=== PATIENT | female | born 1975 | race Caucasian/White ===

== ENCOUNTER 2016-11-22 09:47 | Outpatient (CLI) | payer OTHER, MEDICAID | END 2016-11-22 10:26 | disposition home or self-care (01) | LOC: LC 09:47 | PROVIDERS: ATTEND Specialist | DX: O62.9 Abnormality of forces of labor, unspecified (principal) | CPT/HCPCS: 59025 ==

== ENCOUNTER 2016-12-02 15:38 | Outpatient (CLI) | payer OTHER, MEDICAID | END 2016-12-02 16:18 | disposition home or self-care (01) | LOC: LC 15:38 | PROVIDERS: ATTEND Obstetrics & Gynecology | PROC: 4A1HXCZ Monitoring of Products of Conception, Cardiac Rate, External Approach (ICD-10-PCS; principal; 2016-12-02) | DX: O24.913 Unspecified diabetes mellitus in pregnancy, third trimester (principal); O09.523 Supervision of elderly multigravida, third trimester; Z3A.37 37 weeks gestation of pregnancy | CPT/HCPCS: 59025 ==

== ENCOUNTER 2016-12-03 03:55 | Outpatient (CLI) | payer OTHER, MEDICAID ==
--- NOTE | 2016-12-03 03:58 | Non Stress Test Report ---
Non Stress Test Datetime Report Generated by CPN: 12/03/2016 03:58 DEMOGRAPHIC EGA NST: 37.0 EGA NST: 35.4 INDICATION Indication for Study: Diabetes Mellitus Indication for Study: Diabetes Mellitus; Ordered by Provider Indication for Study (NST) Other: AMA MONITORING Monitor Explained: Monitor Explained; Test Explained; Patient Verbalized Understanding Monitor Explained: Monitor Explained; Test Explained; Patient Verbalized Understanding Time on Monitor: 12/02/2016 15:50 Time on Monitor: 11/22/2016 09:56 Time off Monitor: 12/02/2016 16:16 Time off Monitor: 11/22/2016 10:23 NST Duration: 26 NST Duration: 27 NST INTERVENTIONS NST Interventions: PO Hydration; Reposition Patient NST Interventions: PO Hydration; Reposition Patient Physician Notified NST: Dr De La Torre Physician Notified NST: HKonstantin Duncan, CN BABY A: [id number] BABY A Movement : Present Movement : Present Contraction Frequency : none Contraction Frequency : none FHR Baseline : 145 FHR Baseline : 155 Accelerations : 15X15 Accelerations : 15X15 Decelerations : None Decelerations : None Variability : Moderate 6-25bpm Variability : Moderate 6-25bpm NST Review: Meets Criteria for Reactive NST NST Review: Meets Criteria for Reactive NST NST Review and Verified By : Mary Beth Nagel RN NST Review and Verified By : Marj Chandler RN NST Results: Reactive NST Results: Reactive NST COMMENTS NST Comments: care notes reviewed and signed for kick counts NST REPORT Report Trigger: Send Report Report Trigger: Send Report
[2016-12-03 04:30] LABS: APPEARANCE,URINE CLOUDY; BILIRUBIN,URINE NEGATIVE (NEGATIVE); GLUCOSE, URINE NEGATIVE (NEGATIVE); KETONES,URINE TRACE mg/dL (NEGATIVE); LEUKOCYTE ESTERASE,URINE NEGATIVE (NEGATIVE); NITRITE,URINE NEGATIVE (NEGATIVE); PROTEIN,URINE NEGATIVE (NEGATIVE); URINE SPECIFIC GRAVITY 1.013; UROBILINOGEN,URINE NEGATIVE mg/dL (<2.0)
[2016-12-03 04:44] LABS: URINE BARBITURATES SCREEN NEGATIVE; URINE METHADONE SCREEN NEGATIVE; URINE OPIATES LOW NEGATIVE; URINE PHENCYCLIDINE SCREEN NEGATIVE
[2016-12-03] MEDS ORDERED: RINGERS SOLUTION,LACTATED 1,000 ML IV PRN (05:32)
[2016-12-03] MEDS ORDERED: HYDROXYZINE PAMOATE 50 MG CAPSULE ONE (09:21)
== END 2016-12-03 09:36 | disposition home or self-care (01) ==
LOC: LC 03:55
PROVIDERS: ATTEND Obstetrics & Gynecology
PROC: 4A1HXCZ Monitoring of Products of Conception, Cardiac Rate, External Approach (ICD-10-PCS; principal; 2016-12-03)
DX: O47.1 False labor at or after 37 completed weeks of gestation (principal); O09.523 Supervision of elderly multigravida, third trimester; O34.219 Maternal care for unspecified type scar from previous cesarean delivery; Z3A.37 37 weeks gestation of pregnancy
CPT/HCPCS: 76819; 80307; 81005

== ENCOUNTER → 2016-12-06 | Outpatient (CLI) | payer OTHER, MEDICAID | LOC: LC 11:40 | PROVIDERS: ATTEND Obstetrics & Gynecology | PROC: 4A0HXCZ Measurement of Products of Conception, Cardiac Rate, External Approach (ICD-10-PCS; principal; 2016-12-06) | DX: Z34.82 Encounter for supervision of other normal pregnancy, second trimester (principal); Z3A.37 37 weeks gestation of pregnancy | CPT/HCPCS: 76819; 82962 ==

== ENCOUNTER → 2016-12-15 | Outpatient (CLI) | payer OTHER, MEDICAID ==
[2016-12-16 10:55] LABS: AMNISURE (ROM) NEGATIVE (NEGATIVE)
[2016-12-16 14:21] LABS: APPEARANCE,URINE CLOUDY; BILIRUBIN,URINE NEGATIVE (NEGATIVE); GLUCOSE, URINE NEGATIVE (NEGATIVE); KETONES,URINE NEGATIVE (NEGATIVE); LEUKOCYTE ESTERASE,URINE NEGATIVE (NEGATIVE); NITRITE,URINE NEGATIVE (NEGATIVE); PROTEIN,URINE NEGATIVE (NEGATIVE); URINE SPECIFIC GRAVITY 1.005; UROBILINOGEN,URINE NEGATIVE mg/dL (<2.0)
== END ==
LOC: LC 15:41
PROVIDERS: ATTEND Specialist
PROC: 4A1HXCZ Monitoring of Products of Conception, Cardiac Rate, External Approach (ICD-10-PCS; principal; 2016-12-15)
DX: O09.523 Supervision of elderly multigravida, third trimester (principal); Z3A.39 39 weeks gestation of pregnancy
CPT/HCPCS: 80307; 81005; 84112

== ENCOUNTER 2016-12-16 08:36 | Outpatient (CLI) | payer OTHER, MEDICAID ==
[2016-12-16 09:28] LABS: APPEARANCE,URINE CLOUDY; BILIRUBIN,URINE NEGATIVE (NEGATIVE); GLUCOSE, URINE NEGATIVE (NEGATIVE); KETONES,URINE TRACE mg/dL (NEGATIVE); LEUKOCYTE ESTERASE,URINE TRACE (NEGATIVE); NITRITE,URINE NEGATIVE (NEGATIVE); PROTEIN,URINE NEGATIVE (NEGATIVE); UROBILINOGEN,URINE NEGATIVE mg/dL (<2.0)
[2016-12-16 09:52] LABS: URINE BARBITURATES SCREEN NEGATIVE; URINE METHADONE SCREEN NEGATIVE; URINE OPIATES LOW NEGATIVE; URINE PHENCYCLIDINE SCREEN NEGATIVE
== END 2016-12-16 09:57 | disposition home or self-care (01) ==
LOC: LC 08:36
PROVIDERS: ATTEND Student in an Organized Health Care Education/Training Program
PROC: 4A1HXCZ Monitoring of Products of Conception, Cardiac Rate, External Approach (ICD-10-PCS; principal; 2016-12-16)
DX: O47.1 False labor at or after 37 completed weeks of gestation (principal); O09.523 Supervision of elderly multigravida, third trimester; Z3A.39 39 weeks gestation of pregnancy
CPT/HCPCS: 59025; 80307; 81005

== ENCOUNTER 2016-12-16 12:08 | Outpatient (CLI) | payer OTHER, MEDICAID ==
--- NOTE | 2016-12-16 13:37 | Non Stress Test Report ---
Non Stress Test Datetime Report Generated by CPN: 12/16/2016 13:36 DEMOGRAPHIC EGA NST: 39.0 EGA NST: 39.0 INDICATION Indication for Study: Ordered by Provider Indication for Study: Ordered by Provider MONITORING Monitor Explained: Monitor Explained; Test Explained; Patient Verbalized Understanding Monitor Explained: Monitor Explained; Test Explained; Patient Verbalized Understanding Time on Monitor: 12/16/2016 12:10 Time on Monitor: 12/16/2016 08:49 Time off Monitor: 12/16/2016 13:24 Time off Monitor: 12/16/2016 09:43 NST Duration: 74 NST Duration: 54 NST INTERVENTIONS NST Interventions: IV Fluids NST Interventions: None Physician Notified NST: Dr. Bullard Physician Notified NST: Dr. Bullard BABY A Movement : Present Movement : Present Contraction Frequency : irregualr Contraction Frequency : irregular FHR Baseline : 140 FHR Baseline : 145 Accelerations : 15X15 Accelerations : 15X15 Decelerations : None Decelerations : None Variability : Moderate 6-25bpm Variability : Moderate 6-25bpm NST Review: Meets Criteria for Reactive NST NST Review: Meets Criteria for Reactive NST NST Review and Verified By : Norbert Ge RN NST Review and Verified By : Norbert Ge RNC NST Results: Reactive NST Results: Reactive NST REPORT Report Trigger: Send Report
== END 2016-12-16 13:35 | disposition home or self-care (01) ==
LOC: LC 12:08
PROVIDERS: ATTEND Student in an Organized Health Care Education/Training Program
PROC: 4A1HXCZ Monitoring of Products of Conception, Cardiac Rate, External Approach (ICD-10-PCS; principal; 2016-12-16)
DX: O47.1 False labor at or after 37 completed weeks of gestation (principal); O09.523 Supervision of elderly multigravida, third trimester; Z3A.39 39 weeks gestation of pregnancy
CPT/HCPCS: 59025

== ENCOUNTER 2016-12-17 02:14 | Outpatient (CLI) | payer OTHER, MEDICAID ==
[2016-12-17 03:06] LABS: APPEARANCE,URINE SLIGHTLY-CLOUDY; BILIRUBIN,URINE NEGATIVE (NEGATIVE); GLUCOSE, URINE NEGATIVE (NEGATIVE); KETONES,URINE TRACE mg/dL (NEGATIVE); LEUKOCYTE ESTERASE,URINE NEGATIVE (NEGATIVE); NITRITE,URINE NEGATIVE (NEGATIVE); PROTEIN,URINE NEGATIVE (NEGATIVE); URINE SPECIFIC GRAVITY 1.013; UROBILINOGEN,URINE NEGATIVE mg/dL (<2.0)
[2016-12-17 03:11] LABS: AMNISURE (ROM) NEGATIVE (NEGATIVE)
[2016-12-17 03:21] LABS: URINE BARBITURATES SCREEN NEGATIVE; URINE OPIATES LOW NEGATIVE; URINE PHENCYCLIDINE SCREEN NEGATIVE
[2016-12-17 03:28] LABS: URINE METHADONE SCREEN NEGATIVE
--- NOTE | 2016-12-17 04:16 | Non Stress Test Report ---
Non Stress Test Datetime Report Generated by CPN: 12/17/2016 04:15 DEMOGRAPHIC EGA NST: 39.1 INDICATION Indication for Study: Ordered by Provider MONITORING Monitor Explained: Monitor Explained; Test Explained; Patient Verbalized Understanding Time on Monitor: 12/17/2016 02:46 Time off Monitor: 12/17/2016 04:07 NST Duration: 81 NST INTERVENTIONS NST Interventions: Reposition Patient Physician Notified NST: DrKonstantin Bullard BABY A Movement : Present (Annotations: Data stored by [facility] on behalf of user) Contraction Frequency : 6-9 FHR Baseline : 145 Accelerations : 15X15 Decelerations : None Variability : Moderate 6-25bpm NST Review: Meets Criteria for Reactive NST NST Review and Verified By : Nai Montoya RN NST Results: Reactive NST REPORT Report Trigger: Send Report
== END 2016-12-17 04:22 | disposition other institution (70) ==
LOC: LC 02:14
PROVIDERS: ATTEND Student in an Organized Health Care Education/Training Program
PROC: 4A1HXCZ Monitoring of Products of Conception, Cardiac Rate, External Approach (ICD-10-PCS; principal; 2016-12-17)
DX: O47.1 False labor at or after 37 completed weeks of gestation (principal); O09.523 Supervision of elderly multigravida, third trimester; Z3A.39 39 weeks gestation of pregnancy
CPT/HCPCS: 59025; 80307; 81005; 82962; 84112

== ENCOUNTER 2016-12-17 04:23 | Inpatient (IN) | payer OTHER, MEDICAID ==
[2016-12-16 12:03] LABS: ABSOLUTE BASOPHILS # (AUTO) 0.1 10^3/uL (0.0-0.2); ABSOLUTE LYMPHOCYTES (AUTO) 1.7 10^3/uL (0.5-4.7); ABSOLUTE NEUT (AUTO) 11.4 10^3/uL (1.7-8.2); BASOPHILS % (AUTO) 0.4 % (0-2); EOSINOPHILS % (AUTO) 0.2 % (0-6); HEMOGLOBIN 9.9 g/dL (12.0-15.5); HGB HCT DIFFERENCE -2.3; MEAN CORPUSCULAR HEMOGLOBIN 22.4 pg (27.0-33.4); MEAN CORPUSCULAR VOLUME 72 fl (80-97); MONOCYTES % (AUTO) 6.8 % (3-13); RED BLOOD COUNT 4.42 10^6/uL (3.72-5.28); RED CELL DISTRIBUTION WIDTH 15.5 % (11.5-14.0); SEGMENTED NEUTROPHILS % (AUTO) 80.6 % (42-78); WHITE BLOOD COUNT 14.1 10^3/uL (4.0-10.5)
[~2016-12-17 04:23] MED LIST: HYDROXYZINE PAMOATE 50 MG CAPSULE ONE
[2016-12-17] MEDS ORDERED: RINGERS SOLUTION,LACTATED 1,000 ML IV PRN (05:00)
[2016-12-17] MEDS: RINGERS SOLUTION,LACTATED 1,000 ML IV PRN ×2 (05:08→06:03)
[2016-12-17] MEDS ORDERED: OXYTOCIN 10 UNIT/ML VIAL ONE (07:41)
[2016-12-17] MEDS ORDERED: KETOROLAC TROMETHAMINE INJ/PF 30 MG/1 ML SDV ONE (07:41)
[2016-12-17] MEDS ORDERED: FENTANYL CITRATE INJ/PF 100 MCG/2 ML AMPUL ONE (07:41)
[2016-12-17] MEDS ORDERED: MIDAZOLAM 2 MG/2 ML INJ ONE (07:41)
[2016-12-17] MEDS ORDERED: EPHEDRINE SULFATE INJ 50 MG/1 ML AMPULE ONE (07:41)
[2016-12-17] MEDS ORDERED: FENTANYL CITRATE INJ/PF 250 MCG/5 ML AMPULE ONE (07:41)
[2016-12-17] MEDS ORDERED: OXYTOCIN/NORMAL SALINE 20 UNIT/1,000 ML RTUINJ ONE (07:42)
[2016-12-17] MEDS ORDERED: ONDANSETRON HCL INJ/PF 4 MG/2 ML SDV ONE (07:42)
[2016-12-17] MEDS ORDERED: ACETAMINOPHEN 100 ML IV ONE (07:42)
[2016-12-17] MEDS: CEFAZOLIN 1 GM/D5W RTU 1 GM/50 ML RTUPB IV PRN ×3 (08:00→12:42)
[2016-12-17] MEDS ORDERED: MORPHINE SULFATE 10 MG/ML INJ IV PRN (08:44)
[2016-12-17] MEDS ORDERED: ONDANSETRON HCL INJ/PF 4 MG/2 ML SDV IV PRN (08:44)
[2016-12-17] MEDS ORDERED: OXYCODONE-ACETAMINOPHEN 5-325 MG TABLET PO PRN ×4 (08:44→09:43)
[2016-12-17] MEDS ORDERED: FENTANYL CITRATE INJ/PF 100 MCG/2 ML AMPUL IV PRN ×3 (08:44)
[2016-12-17] MEDS ORDERED: MEPERIDINE HCL/PF INJ 25 MG/1 ML DISP.SYRIN IV PRN (08:44)
[2016-12-17] MEDS ORDERED: DIPHENHYDRAMINE HCL 50 MG/ML VIAL IV PRN (08:44)
[2016-12-17] MEDS ORDERED: PROMETHAZINE HCL INJ 25 MG/1 ML VIAL IV PRN ×3 (08:44→09:43)
[2016-12-17] MEDS ORDERED: PHENYLEPHRINE HCL INJ/PF 10 MG/1 ML SDV ONE (09:13)
--- NOTE | 2016-12-17 09:41 | Operative Report ---
Operative Report DATE OF SURGERY: 12/17/16 PREOPERATIVE DIAGNOSIS: Repeat , gestational diabetes, macrosomia POSTOPERATIVE DIAGNOSIS: Same OPERATION: Repeat via low transverse uterine incision and lysis of adhesions SURGEON: BRYANT MCQUEEN ANESTHESIA: Spinal TISSUE REMOVED OR ALTERED: Placenta COMPLICATIONS: None ESTIMATED BLOOD LOSS: 250 cc INTRAOPERATIVE FINDINGS: Viable male found Apgars 9 9 weight 10 lbs. 15 oz. PROCEDURE: Patient was taken to the OR and placed in supine position after her spinal anesthesia. She is prepared and draped in sterile fashion. Siddiqui was placed for drainage of the bladder. Low transverse incision was made and carried down the level of the fascia. The fascial incision was made with knife and extended bilaterally with curved See scissors. The fascia was off the rectus muscles using sharp and blunt dissection. The rectus muscles are in the midline. The peritoneum was entered without incident. The uterus was adhesed to the anterior rectus muscles. These adhesions were lysed as much as possible with curved See scissors. Bladder blade was placed in uterine segment was identified. A low transverse incision was made creating a bladder flap. Bladder blade was placed low transverse uterine incision was made with the c safe 200 knife and extended with fingertips. The baby was delivered with some fundal pressure. Mouth and nose were suctioned free. The cord is doubly clamped and cut. Baby is passed off to the blocking machine tender in attendance. The placenta was manually extracted with trailing membranes. The uterus could not be externalized. Uterine contents wiped free. Uterus was closed with a running locking layer of 0 chromic suture using the second layer to imbricate the first completing a double layer closure of the uterus. The serosa was closed with a running 2-0 chromic stitch. Interceed was placed over the incision. The pelvis was irrigated and suctioned free of fluid. The abdominal wall peritoneum was closed with running 2-0 chromic stitch. Fascia was closed with a running 0 Vicryl in 2 segments. Babak's layer was brought together with 0 plain gut stitch and the skin was closed with running subcuticular 4-0 undyed Vicryl stitch. The wound was dressed mother and baby did well.
[2016-12-17] MEDS ORDERED: DIPH/PERTUSS(ACELL)/TETANUS VAC/PF 0.5 ML SYR (>=10YO) IM PRN (09:43)
[2016-12-17] MEDS ORDERED: SIMETHICONE 80 MG TAB.CHEW PO PRN (09:43)
[2016-12-17] MEDS ORDERED: HYDROMORPHONE HCL INJ/PF 2 MG/ML AMPULE IV PRN (09:43)
[2016-12-17] MEDS ORDERED: ACETAMINOPHEN 325 MG TABLET PO PRN (09:43)
[2016-12-17] MEDS ORDERED: OXYTOCIN/NORMAL SALINE 1,000 ML IV PRN (09:43)
[2016-12-17] MEDS ORDERED: ACETAMINOPHEN 100 ML IV PRN (09:43)
[2016-12-17] MEDS ORDERED: MEASLES,MUMPS&RUBELLA VACC/PF 0.5 ML VIAL SUBCUT PRN (09:43)
[2016-12-17] MEDS: FENTANYL CITRATE INJ/PF 100 MCG/2 ML AMPUL ONE ×3 (10:05→10:30)
[2016-12-17] MEDS: IBUPROFEN 800 MG TABLET PO SCH ×3 (12:35→23:40)
[2016-12-17] MEDS: DOCUSATE SODIUM 100 MG CAPSULE PO SCH ×2 (12:35→18:39)
[2016-12-17] MEDS: PRENATAL VITAMIN W-O CA NO5/FE FUMARATE/FA CAPSULE PO SCH (12:35)
[2016-12-17] MEDS ORDERED: DIPHENHYDRAMINE HCL 25 MG CAPSULE PO PRN (12:35)
[2016-12-18] MEDS: IBUPROFEN 800 MG TABLET PO SCH ×3 (06:26→17:53)
[2016-12-18 06:29] LABS: HEMATOCRIT 26.6 % (36.0-47.0); HEMOGLOBIN 8.5 g/dL (12.0-15.5); HGB HCT DIFFERENCE -1.1; MEAN CORPUSCULAR HEMOGLOBIN 22.8 pg (27.0-33.4); MEAN CORPUSCULAR VOLUME 71 fl (80-97); RED BLOOD COUNT 3.73 10^6/uL (3.72-5.28); RED CELL DISTRIBUTION WIDTH 14.9 % (11.5-14.0); WHITE BLOOD COUNT 17.1 10^3/uL (4.0-10.5)
[2016-12-18] MEDS: PRENATAL VITAMIN W-O CA NO5/FE FUMARATE/FA CAPSULE PO SCH (09:05)
[2016-12-18] MEDS: DOCUSATE SODIUM 100 MG CAPSULE PO SCH ×2 (09:05→17:53)
[2016-12-19] MEDS: IBUPROFEN 800 MG TABLET PO SCH ×3 (00:23→11:17)
[2016-12-19 09:02] VITALS: BP 119/68
[2016-12-19] MEDS: PRENATAL VITAMIN W-O CA NO5/FE FUMARATE/FA CAPSULE PO SCH (09:22)
[2016-12-19] MEDS: DOCUSATE SODIUM 100 MG CAPSULE PO SCH (09:22)
--- NOTE | 2016-12-19 11:11 | PDOC PROGRESS REPORT ---
Subjective-OB Subjective: Post Delivery Day: 41 year old. Denies any needs at this time. Ready to be discharged but will remain as [place]. Physical Exam (OB) Vital Signs: Temp Pulse Resp BP Pulse Ox 98.3 F 75 16 119/68 97 12/19/16 09:01 12/19/16 09:01 12/19/16 09:01 12/19/16 09:01 12/19/16 09:01 Intake & Output 12/18/16 12/19/16 12/20/16 06:59 06:59 06:59 Intake Total 3050 Output Total 3450 Balance -400 - PIH/Pre-Eclampsia Clonus: Negative - Dressing Removed: No Incision: Dressing Closure Type: opsite - Lochia Lochia Amount: Scant < 10 ml Lochia Color: Rubra/Red - Abdomen Description: Soft, Round Hernia Present: No Bowel Sounds: Normoactive Flatus Presence: Present Stool: No Fundal Description: Firm, Midline Fundal Height: u/u - u/2 Objective-Diagnostic Laboratory: 12/18/16 05:51
--- NOTE | 2016-12-19 11:17 | PDOC DISCHARGE SUMMARY ---
Final Diagnosis Discharge Date: 12/19/16 - Final Diagnosis (1) AMA (advanced maternal age) multigravida 35+ Is this a current diagnosis for this admission?: Yes (2) Delivery by elective caesarean section Is this a current diagnosis for this admission?: Yes (3) GDM (gestational diabetes mellitus) Is this a current diagnosis for this admission?: Yes (4) Positive GBS test Is this a current diagnosis for this admission?: Yes (5) Is this a current diagnosis for this admission?: Yes Discharge Data - Discharge Medication Home Medications: Vit/Iron Fumarate/FA [ Tablet] 1 each PO DAILY 11/22/16 Docusate Sodium [Colace 100 mg Capsule] 100 mg PO BID #30 capsule 12/19/16 Ibuprofen [Motrin 800 mg Tablet] 800 mg PO Q6 #30 tablet 12/19/16 Oxycodone HCl/Acetaminophen [Percocet 5-325 mg Tablet] 1 tab PO Q4HP PRN #20 tablet 12/19/16 Gestational Age: 39.0 wks Reason(s) for Admission: Ceasarean Section-Repeat Procedures: NST, Ultrasound Intrapartum Procedure(s): : Low Cervical, Transverse - [place] Data Baby 1 Male at 1 minute: 9 at 5 minutes: 9 Weight: 4.933 kg Home with Mother: No Complications: Yes - Low oxygen saturations - Diagnosis Test Laboratory: Temp Pulse Resp BP Pulse Ox 98.3 F 75 16 119/68 97 12/19/16 09:01 12/19/16 09:01 12/19/16 09:01 12/19/16 09:01 12/19/16 09:01 12/16/16 12/18/16 11:02 05:51 RBC 4.42 3.73 Hgb 9.9 L 8.5 L Hct 32.0 L 26.6 L - Discharge information/Instructions Discharge Activity: Activity As Tolerated, Balance Activity w/Rest, No Driving, No Lifting Over 10 Pounds, No Lifting/Push/Pulling, Pelvic Rest, Slowly Increase Activity, No tub bath, Walk Frequently Discharge Diet: Regular Disposition: HOME, SELF-CARE Follow up with: [facility] in: 1, Weeks
== END 2016-12-19 14:00 | disposition home or self-care (01) | DRG 766 ==
LOC: 2S 04:23
PROVIDERS: ADMIT Obstetrics & Gynecology; ATTEND Obstetrics & Gynecology
PROC: 10D00Z1 Extraction of Products of Conception, Low, Open Approach (ICD-10-PCS; principal; 2016-12-17 07:45)
DX: O34.211 Maternal care for low transverse scar from previous cesarean delivery (principal); O36.63X0 Maternal care for excessive fetal growth, third trimester, not applicable or unspecified; O24.420 Gestational diabetes mellitus in childbirth, diet controlled; O99.824 Streptococcus B carrier state complicating childbirth; N85.8 Other specified noninflammatory disorders of uterus; Z3A.39 39 weeks gestation of pregnancy; Z37.0 Single live birth; O09.523 Supervision of elderly multigravida, third trimester
CPT/HCPCS: 1961; 36415; 85025; 85027; 86850; 86900; 86901; 90715; 94799; C1765; J0131; J0690; J1170; J1885; J2250; J2270; J2370; J2405; J2590; J3010; J3490; J7120

== ENCOUNTER 2018-06-27 20:14 | Emergency (ER) | payer MEDICAID, OTHER ==
--- NOTE | 2018-06-27 22:32 | ER Document Report ---
ED Medical Screen (RME) - General Chief Complaint: Dizziness Stated Complaint: DIZZY/NAUSEA Time Seen by Provider: 06/27/18 22:30 Mode of Arrival: Ambulatory Information source: Patient Notes: 43-year-old female presents to ED for complaint of dizziness and vomiting today. She states this started at 430 this afternoon. She states she is thrown up twice since then. She states her last menstrual period was May 16. She states she is on control pills and has not missed any pills. She denies any fevers cough or abdominal pain. She states she does have some sinus drainage. Abdomen soft nontender to palpation at bowel sounds active lung sounds clear. I have greeted and performed a rapid initial assessment of this patient. A comprehensive ED assessment and evaluation of the patient, analysis of test results and completion of medical decision making process will be conducted by an additional ED providers. TRAVEL OUTSIDE OF THE [place] IN LAST 30 DAYS: No - Related Data Allergies/Adverse Reactions: No Known Allergies Allergy (Verified 12/17/16 02:37) Past Medical History - Past Medical History Cardiac Medical History: Denies: Hx Hypertension, Hx Pulmonary Embolism, Hx Heart Murmur Pulmonary Medical History: Denies: Hx Asthma, Hx Sleep Apnea, Hx Tuberculosis Neurological Medical History: Denies: Hx Cerebrovascular Accident, Hx Seizures Endocrine Medical History: Denies: Hx Hyperthyroidism, Hx Hypothyroidism Renal/ Medical History: Denies: Hx Kidney Stones, Hx Ovarian Cysts, Hx Pelvic Inflammatory Disease Malignancy Medical History: Denies: Hx Breast Cancer, Hx Cervical Cancer, Hx Ovarian Cancer GI Medical History: Reports: Hx Gastroesophageal Reflux Disease. Denies: Hx Hiatal Hernia, Hx Ulcer Musculoskeltal Medical History: Denies Hx Fibromyalgia Psychiatric Medical History: Denies: Hx Bipolar Disorder, Hx Depression, Hx Post Traumatic Stress Disorder , Hx Schizophrenia Traumatic Medical History: Denies: Hx Fractures Infectious Medical History: Denies: Hx HIV Physical Exam - Vital signs Vitals: Temp Pulse Resp BP Pulse Ox 98.1 F 83 16 133/80 H 99 06/27/18 20:19 06/27/18 20:19 06/27/18 20:19 06/27/18 20:19 06/27/18 20:19 Course - Vital Signs Vital signs: Temp Pulse Resp BP Pulse Ox 98.1 F 83 16 133/80 H 99 06/27/18 20:19 06/27/18 20:19 06/27/18 20:19 06/27/18 20:19 06/27/18 20:19 Doctor's Discharge - Discharge Referrals: PANKAJ PATEL MD [Primary Care Provider] - Follow up as needed
[2018-06-27 23:13] LABS: APPEARANCE,URINE SLIGHTLY-CLOUDY; BILIRUBIN,URINE NEGATIVE (NEGATIVE); COLOR,URINE STRAW; GLUCOSE, URINE NEGATIVE (NEGATIVE); KETONES,URINE NEGATIVE (NEGATIVE); LEUKOCYTE ESTERASE,URINE NEGATIVE (NEGATIVE); NITRITE,URINE NEGATIVE (NEGATIVE); PROTEIN,URINE NEGATIVE (NEGATIVE); URINE SPECIFIC GRAVITY 1.006; UROBILINOGEN,URINE NEGATIVE mg/dL (<2.0)
[2018-06-27 23:41] LABS: ABSOLUTE BASOPHILS # (AUTO) 0.1 10^3/uL (0.0-0.2); ABSOLUTE MONOCYTES (AUTO) 0.5 10^3/uL (0.1-1.4); ABSOLUTE NEUT (AUTO) 5.8 10^3/uL (1.7-8.2); BASOPHILS % (AUTO) 0.8 % (0-2); EOSINOPHILS % (AUTO) 0.3 % (0-6); HEMATOCRIT 42.2 % (36.0-47.0); HEMOGLOBIN 14.2 g/dL (12.0-15.5); LYMPHOCYTES % (AUTO) 31.7 % (13-45); MEAN CORPUSCULAR HEMOGLOBIN 27.2 pg (27.0-33.4); MEAN CORPUSCULAR HGB CONC 33.6 g/dL (32.0-36.0); MEAN CORPUSCULAR VOLUME 81 fl (80-97); MONOCYTES % (AUTO) 5.5 % (3-13); PLATELET COUNT 350 10^3/uL (150-450); RED BLOOD COUNT 5.22 10^6/uL (3.72-5.28); RED CELL DISTRIBUTION WIDTH 14.2 % (11.5-14.0); SEGMENTED NEUTROPHILS % (AUTO) 61.7 % (42-78); TOTAL CELLS COUNTED % (AUTO) 100 %; WHITE BLOOD COUNT 9.3 10^3/uL (4.0-10.5)
[2018-06-27 23:51] LABS: ALBUMIN 4.5 g/dL (3.5-5.0); ALKALINE PHOSPHATASE 109 U/L (38-126); ANION GAP 15 (5-19); ASPARTATE AMINO TRANSFERASE 41 U/L (14-36); BLOOD UREA NITROGEN 8 mg/dL (7-20); CALCIUM 9.8 mg/dL (8.4-10.2); CARBON DIOXIDE 24 mmol/L (22-30); CHLORIDE 105 mmol/L (98-107); GLUCOSE 130 mg/dL (75-110); POTASSIUM 4.9 mmol/L (3.6-5.0); SODIUM 143.5 mmol/L (137-145)
[2018-06-27 23:52] LABS: ALANINE AMINOTRANSFERASE 34 U/L (9-52); BILIRUBIN,DIRECT 0.2 mg/dL (0.0-0.4); BILIRUBIN,TOTAL 0.4 mg/dL (0.2-1.3); TOTAL PROTEIN 8.2 g/dL (6.3-8.2)
--- NOTE | 2018-06-28 00:56 | ER Document Report ---
ED General - General Chief Complaint: Dizziness Stated Complaint: DIZZY/NAUSEA Time Seen by Provider: 06/27/18 22:30 Mode of Arrival: Ambulatory Notes: Patient is a 40-year-old female presents with complaint of dizziness followed with vomiting. She says that the dizziness because of vomiting. She states she has had a lot of nasal congestion and her and her son and also people at work have also been sick with similar symptoms. No fevers. No diarrhea. No abdominal pain. No chest pain. No difficulty breathing. No other complaints at this time. She describes the dizziness as "I felt like I was on a carousel". TRAVEL OUTSIDE OF THE [place] IN LAST 30 DAYS: No - Related Data Allergies/Adverse Reactions: No Known Allergies Allergy (Verified 12/17/16 02:37) Past Medical History - General Information source: Patient - Social History Smoking Status: Never Smoker Frequency of alcohol use: None Drug Abuse: None Family History: Reviewed & Not Pertinent Patient has suicidal ideation: No Patient has homicidal ideation: No - Past Medical History Cardiac Medical History: Denies: Hx Hypertension, Hx Pulmonary Embolism, Hx Heart Murmur Pulmonary Medical History: Denies: Hx Asthma, Hx Sleep Apnea, Hx Tuberculosis Neurological Medical History: Denies: Hx Cerebrovascular Accident, Hx Seizures Endocrine Medical History: Denies: Hx Hyperthyroidism, Hx Hypothyroidism Renal/ Medical History: Denies: Hx Kidney Stones, Hx Ovarian Cysts, Hx Peritoneal Dialysis, Hx Pelvic Inflammatory Disease Malignancy Medical History: Denies: Hx Breast Cancer, Hx Cervical Cancer, Hx Ovarian Cancer GI Medical History: Reports: Hx Gastroesophageal Reflux Disease. Denies: Hx Hiatal Hernia, Hx Ulcer Musculoskeletal Medical History: Denies Hx Fibromyalgia Psychiatric Medical History: Denies: Hx Bipolar Disorder, Hx Depression, Hx Post Traumatic Stress Disorder , Hx Schizophrenia Traumatic Medical History: Denies: Hx Fractures Infectious Medical History: Denies: Hx HIV Past Surgical History: Reports: Hx Section - 3 Review of Systems - Review of Systems Notes: My Normal Review Basic REVIEW OF SYSTEMS: CONSTITUTIONAL : Denies fever, chills, or sweats. Denies recent illness. EENT: Congestion and sinus pressure. CARDIOVASCULAR: Denies chest pain. RESPIRATORY: Denies cough, cold, or chest congestion. Denies shortness of breath, difficulty breathing, or wheezing. GASTROINTESTINAL: Denies abdominal pain. Vomiting x2. GENITOURINARY: Denies difficulty urinating, painful urination, burning, frequency, or blood in urine. MUSCULOSKELETAL: Denies neck or back pain or joint pain or swelling. SKIN: Denies rash or skin lesions. NEUROLOGICAL: Denies altered mental status or loss of consciousness. Denies headache. Some spinning type dizziness consistent with vertigo. ALL OTHER SYSTEMS REVIEWED AND NEGATIVE. Physical Exam - Vital signs Vitals: Temp Pulse Resp BP Pulse Ox 98.1 F 83 16 133/80 H 99 06/27/18 20:19 06/27/18 20:19 06/27/18 20:19 06/27/18 20:19 06/27/18 20:19 - Notes Notes: General Appearance: Well nourished, alert, cooperative, no acute distress, no obvious discomfort. Well-appearing Vitals: reviewed, See vital signs table. Head: no swelling or tenderness to the head Eyes: PERRL, EOMI, Conjuctiva clear Mouth: No decreasd moisture Throat: No tonsillar inflammation, No airway obstruction, No lymphadenopathy Neck: Supple, no neck tenderness, No thyromegaly Ears: Normal-appearing tympanic membranes bilaterally. Nares. Nares clear at this time. Lungs: No wheezing, No rales, No rhonci, No accessory muscle use, good air exchange bilaterally. Heart: Normal rate, Regular rythm, No murmur, no rub Abdomen: Normal BS, soft, No rigidity, No abdominal tenderness, No guarding, no rebound, no abdominal masses, no organomegaly Extremities: good pulses in all extremities, Skin: warm, dry, appropriate color, no rash Neuro: speech clear, oriented x 3, normal affect, responds appropriately to questions. Cranial nerves II through XII are intact. Patient moves all extremities without difficulty. No focal neurologic deficits on exam. Course - Re-evaluation Re-evalutation: 06/28/18 00:57 Patient's history and symptoms are consistent with that of vertigo type dizziness is most likely exacerbated by upper story infection sinus pressure. I talked her length about using nasal decongestants as well as Nasacort spray. I will give her a prescription for meclizine as well as give her some Zofran tablets. I encouraged her return to her meal if she has fevers, worsening of her symptoms, recurrent vomiting, or if she feels unwell in any way. Patient agrees with plan and will be discharged home. Currently patient does not have any dizziness at this time and says that ever since she cleared her sinuses she is felt much improved. Dictation of this chart was performed using voice recognition software; therefore, there may be some unintended grammatical errors. - Vital Signs Vital signs: Temp Pulse Resp BP Pulse Ox 98.1 F 83 16 133/80 H 99 06/27/18 20:19 06/27/18 20:19 06/27/18 20:19 06/27/18 20:19 06/27/18 20:19 - Laboratory Result Diagrams: 06/27/18 23:26 06/27/18 23:26 Laboratory results interpreted by me: 06/27/18 06/27/18 23:26 23:26 RDW 14.2 H Creatinine 0.50 L Glucose 130 H AST 41 H Discharge - Discharge Clinical Impression: Vertigo URI (upper respiratory infection) Qualifiers: URI type: unspecified URI Qualified Code(s): J06.9 - Acute upper respiratory infection, unspecified Condition: Good Disposition: HOME, SELF-CARE Additional Instructions: Please take over the counter decongestants such as pseudophedrine. Please take the meclizine for dizziness. Zofran can be used for nausea. Use over the counter nasal spray such as Nasacort. Please follow up closely with your primary care doctor in 2-3 days. Prescriptions: Meclizine HCl [Antivert 25 mg Tablet] 25 mg PO TID PRN #21 tablet PRN Reason: Referrals: PANKAJ PATEL MD [Primary Care Provider] - Follow up in 3-5 days
[2018-06-28] MEDS ORDERED: ONDANSETRON ODT 4 MG TAB (6 TAB/ER DISP) PO PRN (01:00)
[2018-06-28 01:32] VITALS: BP 140/84
== END 2018-06-28 01:33 | disposition home or self-care (01) ==
LOC: ER 20:14
DX: J06.9 Acute upper respiratory infection, unspecified (principal); R42 Dizziness and giddiness; R11.2 Nausea with vomiting, unspecified
CPT/HCPCS: 36415; 80053; 81001; 84702; 85025; 99284